=== PATIENT | male | born 1955 | race Caucasian/White ===

== ENCOUNTER 2018-01-15 12:17 | Emergency (ER) | payer MEDICAID ==
[2018-01-15 16:04] LABS: BILIRUBIN,URINE NEGATIVE (NEGATIVE); GLUCOSE, URINE (UA) NEGATIVE (NEGATIVE); KETONES,URINE (UA) NEGATIVE (NEGATIVE); LEUKOCYTE ESTERASE, URINE NEGATIVE (NEGATIVE); NITRITE,URINE NEGATIVE (NEGATIVE); OCCULT BLOOD,URINE NEGATIVE (NEGATIVE); PROTEIN,URINE NEGATIVE (NEGATIVE); UROBILINOGEN,URINE 1 (NORMAL) E.U./dL (NORMAL)
[2018-01-15 16:11] LABS: CLARITY,URINE CLEAR (CLEAR)
[2018-01-15 16:29] LABS: BASOPHILS % (AUTO) 0.4 %; EOSINOPHILS % (AUTO) 0.4 %; LYMPHOCYTES # (AUTO) 1.9 10^3/uL (1.5-3.5); LYMPHOCYTES % (AUTO) 19.2 %; MEAN CORPUSCULAR HEMOGLOBIN 27.1 pg (27.0-31.0); MEAN CORPUSCULAR HGB CONC 31.9 g/dL (32.0-36.0); MEAN CORPUSCULAR VOLUME 85.1 fL (80.0-94.0); MEAN PLATELET VOLUME 7.9 fL (7.4-11.4); MONOCYTES # (AUTO) 1.7 10^3/uL (0.0-1.0); NEUTROPHILS # (AUTO) 6.3 10^3/uL (1.5-6.6); PLT - PLATELET COUNT 315 10^3/uL (130-450); RED BLOOD COUNT 5.52 10^6/uL (4.70-6.10); RED CELL DISTRIBUTION WIDTH 16.4 % (12.0-15.0); WHITE BLOOD COUNT 10.1 x10^3/uL (4.8-10.8)
[2018-01-15] MEDS ORDERED: KETOROLAC 30 MG/ML VIAL IVP STA (16:38)
[2018-01-15] MEDS ORDERED: fentaNYL 100 MCG/2 ML VIAL IVP STA (16:39)
[2018-01-15 16:46] LABS: ALBUMIN 3.1 g/dL (3.2-5.5); ALBUMIN/GLOBULIN RATIO 0.6 (1.0-2.2); CREATININE 0.9 mg/dL (0.6-1.2); TOTAL PROTEIN 8.4 g/dL (6.7-8.2)
[2018-01-15 16:47] LABS: CALCIUM 12.8 mg/dL (8.5-10.3)
[2018-01-15] MEDS ORDERED: SODIUM CHLORIDE 0.9% 1,000 ML IV ONE (16:47)
[2018-01-15] MEDS ORDERED: IOPAMIDOL-300 100 ML VIAL ONE (17:01)
[2018-01-15] MEDS ORDERED: IOPAMIDOL-300 100 ML VIAL IVP ONE (17:23)
--- NOTE | 2018-01-15 18:07 | CT Report ---
Procedure Date: 01/15/2018 Accession Number: [id number] / [id number] Procedure: CT - Abdomen/Pelvis W/ CPT Code: FULL RESULT: EXAM: CT ABDOMEN AND PELVIS EXAM DATE: 01/15/2018 05:21 PM. CLINICAL HISTORY: Right upper pain with tender mass. COMPARISONS: None. TECHNIQUE: Routine helical CT imaging was performed through the abdomen and pelvis. IV contrast: ISOVUE 300 100 mL. Enteric contrast: No. Reconstructions: Coronal and sagittal. In accordance with CT protocol optimization, one or more of the following dose reduction techniques were utilized for this exam: automated exposure control, adjustment of mA and/or KV based on patient size, or use of iterative reconstructive technique. FINDINGS: Lung Bases: Lung bases are clear. No pleural or pericardial effusions. No cardiac enlargement. Small hiatal hernia noted. Liver: Extensive infiltrative masses are noted throughout the right liver with abnormal enlargement. Many of these lesions appear necrotic. The confluent nature of these lesions makes accurate measurement of individual lesions difficult. The largest lesions are present in segments 5, 6, 7 and 8. Extensive additional lesions are also noted throughout segment 4. Director Zone lesions include a 2.9 cm segment 8 lesion on image 12 and 6.5 cm segment 7/8 lesion on image 12. Small amount of ascites is noted anterior to the right liver. Gallbladder/Bile Ducts: Mild wall thickening in the fundus. No stones or active gallbladder fossa inflammation. No common bile duct dilation. Spleen: Normal. Pancreas: Normal. Adrenal Glands: Normal. Kidneys: Normal. No masses or hydronephrosis. Peritoneal Cavity/Bowel: Small amount of ascites is seen in the right upper quadrant of the abdomen. No pneumoperitoneum or collection concerning for an abscess. Extensive upper abdominal adenopathy is noted. Director Zone nodes include the followin. 3.0 x 4 cm and 2.2 x 1.7 cm periportal nodes on image 22. 2. 1.9 cm paracaval node on image 31. There are multiple diverticula seen which most severely affect the sigmoid colon. No wall thickening or adjacent inflammation seen. No obstruction noted. Appendix not seen. No right lower quadrant inflammation. Remainder of the large bowel is unremarkable. Normal stomach and small bowel. Pelvic Organs: Normal. The bladder and visualized pelvic organs are within normal limits. Vasculature: Diffuse atheromatous plaques are present in the abdominal aorta and branch vessels. No aneurysm. Normal IVC. Bones: No osteoblastic or osteolytic lesions are noted. Multilevel degenerative disk disease and facet arthropathy is noted. Sclerotic foci are present in the right ischial tuberosity and lateral aspect of the right pubic bone near the acetabulum. No accompanying cortical breakthrough or soft tissue mass. Other: None. IMPRESSION: 1. Extensive, partially necrotic infiltrative mass lesions throughout the liver with the greatest concentration of disease in segments 5, 6, 7, 8 and 4. Differential includes metastatic disease or primary liver cancer. 2. Bulky upper abdominal adenopathy concerning for metastatic locoregional disease. 3. Diverticulosis. No inflammation or obstruction. No bowel mass. RADIA The above findings were discussed with David Dubois by Dr. Emperatriz Vivar at 18:06 hrs on 01/15/18.
--- NOTE | 2018-01-15 18:56 | ED Physician Documentation ---
PD HPI ABD PAIN - Stated complaint Stated Complaint: R SIDE PX - Chief complaint Chief Complaint: General - History obtained from History obtained from: Patient - History of Present Illness Timing - onset: How many months ago (2) Timing - details: Gradual onset Quality: Dull Location: RUQ Associated symptoms: Nausea, Loss of appetite, Weight loss. No: Fever, Vomiting , Dysuria Similar symptoms before: Has not had sx before - Additional information Additional information: The patient is a 62-year-old male who presents with right upper quadrant abdominal pain that he first noticed about 2 months ago and has become progressively worse. He reports associated nausea, without vomiting. He denies fever or dysuria. The pain is worse with coughing. He reports poor appetite and has had a 40-50 pound weight loss over the past 2 months. He states his urine has become darker in color. He denies history of similar symptoms in the past. Surgical history: Status post appendectomy. Review of Systems Constitutional: reports: Fatigue. denies: Fever Nose: denies: Congestion Throat: denies: Sore throat Cardiac: denies: Chest pain / pressure Respiratory: denies: Dyspnea, Cough GI: reports: Abdominal Pain, Nausea. denies: Vomiting, Diarrhea : denies: Dysuria Skin: denies: Rash Musculoskeletal: denies: Extremity swelling Neurologic: denies: Focal weakness, Numbness, Headache Endocrine: reports: Weight loss PD PAST MEDICAL HISTORY - Past Medical History Past Medical History: No Cardiovascular: None Respiratory: None Neuro: None Endocrine/Autoimmune: None GI: None : None HEENT: None Psych: None Musculoskeletal: None Derm: None - Past Surgical History Past Surgical History: Yes General: Appendectomy Ortho: Carpal Tunnel surgery - Present Medications Home Medications: Ambulatory Orders Medication Instructions Recorded Confirmed Promethazine [Phenergan] 25 - 50 mg PO Q6H PRN #10 tab 01/15/18 oxyCODONE [Roxicodone] 5 - 10 mg PO Q4-6H PRN #30 tablet 01/15/18 - Allergies Allergies/Adverse Reactions: Allergies Allergy/AdvReac Type Severity Reaction Status Date / Time No Known Drug Allergies Allergy Verified 01/15/18 12:39 - Social History Does the pt smoke?: No Smoking Status: Never smoker Does the pt drink ETOH?: No Does the pt have substance abuse?: No Substance Use and Type: Marijuana PD ED PE NORMAL - Vitals Vital signs reviewed: Yes (Mild hypertension initially.) - General General: Alert and oriented X 3, Well developed/nourished - HEENT HEENT: Atraumatic, Moist mucous membranes, Pharynx benign - Neck Neck: No adenopathy, No JVD - Cardiac Cardiac: RRR, No murmur - Respiratory Respiratory: No respiratory distress, Clear bilaterally - Abdomen Abdomen: Normal bowel sounds, Soft, Other (Tender to palpation in the right upper quadrant, with palpable mass in the right upper quadrant. No rebound tenderness or guarding.) - Derm Derm: No rash - Extremities Extremities: No edema, No calf tenderness / cord - Neuro Neuro: Alert and oriented X 3, No motor deficit, No sensory deficit Results - Vitals Vitals: Vital Signs - 24 hr 01/15/18 01/15/18 01/15/18 12:32 17:01 19:14 Temperature 36.4 C L 37.1 C 36.8 C Heart Rate 80 51 L 76 Respiratory 16 18 16 Rate Blood Pressure 148/88 H 158/85 H 134/80 H O2 Saturation 100 100 98 Oxygen O2 Source Room air - Labs Labs: Laboratory Tests 01/15/18 01/15/18 01/15/18 15:50 16:20 16:20 WBC 10.1 RBC 5.52 Hgb 15.0 Hct 47.0 MCV 85.1 MCH 27.1 MCHC 31.9 L RDW 16.4 H Plt Count 315 MPV 7.9 Neut # (Auto) 6.3 Lymph # (Auto) 1.9 [place] # (Auto) 1.7 H Eos # (Auto) 0.0 Baso # (Auto) 0.0 Absolute Nucleated RBC 0.01 Nucleated RBC % 0.1 Sodium 133 L Potassium 4.3 Chloride 97 L Carbon Dioxide 29 Anion Gap 7.0 BUN 22 H Creatinine 0.9 Estimated GFR (MDRD) 86 L Glucose 106 H Calcium 12.8 H* Total Bilirubin 1.0 AST 118 H ALT 73 H Alkaline Phosphatase 238 H Total Protein 8.4 H Albumin 3.1 L Globulin 5.3 H Albumin/Globulin Ratio 0.6 L Lipase 51 Urine Color YELLOW Urine Clarity CLEAR Urine pH 6.0 Ur Specific [place] 1.020 Urine Protein NEGATIVE Urine Glucose (UA) NEGATIVE Urine Ketones NEGATIVE Urine Occult Blood NEGATIVE Urine Nitrite NEGATIVE Urine Bilirubin NEGATIVE Urine Urobilinogen 1 (NORMAL) Ur Leukocyte Esterase NEGATIVE Ur Microscopic Review NOT INDICATED Urine Culture Comments NOT INDICATED - Rads (name of study) CT abd/pelvis w/ Radiology: Prelim report reviewed, EMP read contemporaneously, See rad report (1 ) Extensive, partially necrotic infiltrative mass lesions throughout the liver with greatest concentration of diseases in segments 4, 5, 6, 7, and 8. Differential includes metastatic disease or primary liver cancer. 2) Bulky upper abdominal adenopathy concerning for metastatic local regional disease. 3) Diverticulosis. No inflammation or obstruction. No bowel mass.) PD MEDICAL DECISION MAKING - ED course Complexity details: reviewed results, re-evaluated patient, considered differential, d/w patient, d/w senior solutions consultant ED course: Patient's presentation is significant for diagnosed liver cancer, with unknown primary. He has hypercalcemia with a calcium of 12.8. Liver enzymes are mildly elevated, with an alkaline phosphatase of 238, and AST of 118. BUN is slightly elevated at 22, with a creatinine of 0.9. CT scan of the abdomen reveals extensive, partially necrotic liver masses. Treatment in the emergency department included administration of normal saline IV, fentanyl 50 mg IV, and ketorolac 30 mg IV. I discussed his condition with the oncologist geospatial information scientist in [place]. She agrees that the patient needs urgent oncology workup and will help arrange for outpatient follow-up in the [facility] this week. The patient is being discharged with prescriptions for oxycodone and Phenergan. I discussed with him the diagnosis, the need for urgent outpatient follow-up, as well as potentially worrisome signs or symptoms that should prompt reevaluation in the emergency department. - Sepsis Event Vital Signs: Vital Signs - 24 hr 01/15/18 01/15/18 01/15/18 12:32 17:01 19:14 Temperature 36.4 C L 37.1 C 36.8 C Heart Rate 80 51 L 76 Respiratory 16 18 16 Rate Blood Pressure 148/88 H 158/85 H 134/80 H O2 Saturation 100 100 98 Oxygen O2 Source Room air Departure - Departure Disposition: 01 Home, Self Care Clinical Impression: Liver masses Abdominal pain Qualifiers: Abdominal location: right upper quadrant Qualified Code(s): R10.11 - Right upper quadrant pain Condition: Stable Instructions: ED Tumor [facility] Follow-Up: Hira Hightower MD [Provider Admit Priv/Credential] - Prescriptions: oxyCODONE [Roxicodone] 5 - 10 mg PO Q4-6H PRN #30 tablet PRN Reason: Pain Promethazine [Phenergan] 25 - 50 mg PO Q6H PRN #10 tab PRN Reason: Nausea / Vomiting Comments: Drink plenty of fluids. You can use oxycodone as prescribed if needed for pain. You can use Phenergan as prescribed if needed for nausea. Follow-up in the oncology clinic this week. Call tomorrow morning to schedule an appointment. Return to the emergency department if you develop increasing abdominal pain, persistent vomiting, or otherwise worsening symptoms. Discharge Date/Time: 01/15/18 19:14
[2018-01-15 19:15] VITALS: BP 134/80
== END 2018-01-15 19:14 | disposition home or self-care (01) ==
LOC: ED 12:17
DX: R16.0 Hepatomegaly, not elsewhere classified (principal); R10.11 Right upper quadrant pain
CPT/HCPCS: 36415; 74177; 80053; 81003; 83690; 85025; 96361; 96374; 96375; 99283; 99284; Q9967; 81001; 87086

== ENCOUNTER 2018-01-19 19:57 | Outpatient (CLI) | payer MEDICAID | END 2018-01-19 19:58 | disposition short-term general hospital (02) | LOC: EMS 19:57 | PROVIDERS: ATTEND Surgery | DX: S09.90XA Unspecified injury of head, initial encounter (principal); R41.82 Altered mental status, unspecified; R45.1 Restlessness and agitation; W18.30XA Fall on same level, unspecified, initial encounter; Y92.008 Other place in unspecified non-institutional (private) residence as the place of occurrence of the external cause | CPT/HCPCS: A0425; A0427; A0999 ==